=== PATIENT | female | born 1980 | race Two or more races ===

== ENCOUNTER 2020-03-16 15:46 | Emergency (ER) | payer MEDICAID, OTHER ==
[~2020-03-16] VITALS: Ht 154.9 cm; Wt 81.6 kg
[2020-03-16 16:16] VITALS: BP 139/78
[2020-03-16] MEDS ORDERED: IBUPROFEN 800 MG TAB PO ONE (16:30)
== END 2020-03-16 17:12 | disposition home or self-care (01) ==
LOC: ER 15:46
DX: S93.401A Sprain of unspecified ligament of right ankle, initial encounter (principal); W01.0XXA Fall on same level from slipping, tripping and stumbling without subsequent striking against object, initial encounter; Y93.89 Activity, other specified; Y92.89 Other specified places as the place of occurrence of the external cause; Y99.8 Other external cause status
CPT/HCPCS: 73610

== ENCOUNTER 2020-06-14 17:48 | Emergency (ER) | payer SELFPAY ==
[~2020-06-14] VITALS: Ht 154.9 cm; Wt 81.6 kg
[2020-06-14] MEDS ORDERED: ACETAMINOPHEN 500 MG TAB PO ONE (20:00)
[2020-06-14] MEDS ORDERED: IBUPROFEN 800 MG TAB PO ONE (20:00)
[2020-06-14 20:20] VITALS: BP 105/65
[2020-06-14 22:32] LABS: Basophils # (auto) 0 10 ^3/uL (0-0.2); Basophils % (auto) 0.5 % (0.0-2.0); Eosinophils # (auto) 0 10 ^3/uL (0-0.8); Eosinophils % (auto) 0.2 % (0.0-7.0); Hematocrit 43.4 % (36.0-46.0); Hemoglobin 14.5 g/dL (12.2-16.2); Lymphocytes # (auto) 1.5 10 ^3/uL (0.4-5.4); Lymphocytes % (auto) 29.1 % (10.0-50.0); Mean Corpuscular Hemoglobin 27.1 pg (28.0-32.0); Mean Corpuscular Hgb Conc. 33.3 g/dL (32.0-36.0); Mean Corpuscular Volume 81.3 fL (80.0-100.0); Monocytes # (auto) 0.5 10 ^3/uL (0-1.3); Monocytes % (auto) 8.9 % (0.0-12.0); Neutrophils # (auto) 3.2 10 ^3/uL (1.6-8.6); Neutrophils % (auto) 61.3 % (37.0-80.0); Nucleated Red Blood Cells % 0.6 %; Platelet Count (auto) 264 10^3/uL (140-450); Red Blood Cells 5.34 10^6/uL (4.0-5.20); Red Cell Distribution Width 13.8 % (11.8-14.3); White Blood Cell 5.2 10^3/uL (4.4-10.8)
[2020-06-14 22:44] LABS: Alanine Aminotransferase 68 U/L (13-56); Albumin 3.4 g/dL (3.4-5.0); Anion Gap 9 (5-15); Aspartate Aminotransferase 65 U/L (15-37); BUN/Creatinine Ratio 9.8; Blood Urea Nitrogen 6 mg/dL (7-18); Calcium 8.1 mg/dL (8.5-10.1); Carbon Dioxide 23 mmol/L (21-32); Chloride 104 mmol/L (98-107); GFR African American 140 mL/min; GFR Non-African American 115 mL/min; Glucose 97 mg/dL (74-106); Sodium 136 mmol/L (136-145)
[2020-06-14 22:47] LABS: Alkaline Phosphatase 80 U/L (45-117); Bilirubin, Total 0.5 mg/dL (0.2-1.0); Total Protein 7.7 g/dL (6.4-8.2)
== END 2020-06-15 01:03 | disposition home or self-care (01) ==
LOC: ER 17:48
DX: J18.9 Pneumonia, unspecified organism (principal); Z20.828 Contact with and (suspected) exposure to other viral communicable diseases
CPT/HCPCS: 36415; 71045; 80053; 83880; 84484; 85025; 87426; 87804

== ENCOUNTER 2023-07-21 18:07 | Emergency (ER) | payer OTHER | END 2023-07-21 19:21 | disposition left against medical advice (07) | LOC: ER 18:07 | DX: R05.9 Cough, unspecified (principal); Z53.21 Procedure and treatment not carried out due to patient leaving prior to being seen by health care provider ==

== ENCOUNTER 2023-11-03 17:57 | Emergency (ER) | payer OTHER ==
[~2023-11-03] VITALS: Ht 154.9 cm; Wt 69.9 kg
[2023-11-03 20:44] VITALS: BP 136/81; PULSE 91; RESP 14; TEMP 98.2; O2SAT 98
[2023-11-03] MEDS: KETOROLAC TROMETH 30 MG/ML 1ML VIAL IM ONE (21:21)
[2023-11-03 21:28] LABS: Urine Bacteria FEW /hpf (None Seen); Urine Blood 2+ /uL (Negative); Urine Clarity Clear (Clear); Urine Color Yellow (Yellow); Urine Mucus FEW (None Seen); Urine Protein, UAD Negative (Negative); Urine Specific Gravity 1.029 (1.001-1.035); Urine Urobilinogen Normal (Negative); Urine WBC 3 /hpf (0 - 5)
[2023-11-03] MEDS ORDERED: CYCL-837 PO (21:53)
[2023-11-03] MEDS ORDERED: NITR-52 PO (21:53)
== END 2023-11-03 21:59 | disposition home or self-care (01) ==
LOC: ER 17:57
DX: M62.838 Other muscle spasm (principal); N39.0 Urinary tract infection, site not specified
CPT/HCPCS: 81001; 96372; 99283; J1885